=== PATIENT | male | born 1990 | race Caucasian/White ===

== ENCOUNTER 2021-06-26 22:18 | Emergency (ER) | payer SELFPAY ==
[~2021-06-26] VITALS: Ht 175.3 cm; Wt 100.0 kg
[2021-06-27 00:20] LABS: CLARITY URINE CLEAR (CLEAR); COLOR URINE YELLOW (YELLOW); KETONES URINE 3+ (NEGATIVE); LEUKOCYTE ESTERASE URINE NEGATIVE (NEGATIVE); NITRITE URINE NEGATIVE (NEGATIVE); OCCULT BLOOD URINE 2+ (NEGATIVE); PH URINE 5.5 (4.5-8.0); PROTEIN URINE 1+ (NEGATIVE); SPECIFIC GRAVITY URINE 1.031 (1.005-1.030)
[2021-06-27 01:21] LABS: HEMATOCRIT. 46.3 % (42.0-52.0); HEMOGLOBIN. 15.5 g/dL (14.0-18.0); MEAN CORPUSCULAR HEMOGLOBIN 30.8 pg (28.0-32.0); MEAN CORPUSCULAR VOLUME 91.9 fL (80.0-94.0); MEAN PLATELET VOLUME 8.8 fl (7.4-10.4); PLATELET 212 x1000/uL (130-400); RED BLOOD CELL COUNT 5.03 mill/uL (4.7-6.1); RED CELL DISTRIBUTION WIDTH 12.2 % (11.6-14.6)
[2021-06-27] MEDS ORDERED: IBUP-2029 MT (01:29)
[2021-06-27] MEDS ORDERED: ACET-2708 MT (01:29)
[2021-06-27] MEDS ORDERED: TAMS-11 PO (01:29)
[2021-06-27] MEDS ORDERED: HYDROCODONE/ACETAMINOPHEN 10/325MG TABLET PO ONE (01:30)
[2021-06-27] MEDS ORDERED: TAMSULOSIN HCL 0.4MG SR CAPSULE PO ONE (01:30)
[2021-06-27] MEDS ORDERED: KETOROLAC 60MG/2ML VIAL IM ONE (01:30)
[2021-06-27 01:31] LABS: CHLORIDE 105 mEq/L (98-107)
[2021-06-27 01:45] VITALS: BP 130/82
[2021-06-27 08:01] LABS: PLATELET ESTIMATE NORMAL
== END 2021-06-27 01:47 | disposition home or self-care (01) ==
LOC: ER 22:18
DX: N20.0 Calculus of kidney (principal)
CPT/HCPCS: 36415; 74176; 80053; 81003; 83690; 85025; 96372; 99284; J1885